=== PATIENT | female | born 1955 | race Asian ===

== ENCOUNTER → 2017-01-08 | Outpatient (CLI) | payer OTHER ==
[~2017-01-08] MED LIST: AMLO10TA2 PO; LOSA100T6 PO; METF500T4 PO
[2017-01-08 14:04] LABS: ASPARTATE AMINO TRANSFERASE 23 U/L (15-37); BLOOD UREA NITROGEN 18 mg/dL (7-18)
== END | disposition home or self-care (01) ==
LOC: STAR 12:32
PROVIDERS: ATTEND Surgery
DX: Z01.818 Encounter for other preprocedural examination (principal); E11.9 Type 2 diabetes mellitus without complications
CPT/HCPCS: 36415; 80053; 85025; 93005

== ENCOUNTER 2017-01-15 07:32 | Day surgery (SDC) | payer OTHER ==
[2017-01-08 13:43] VITALS: BP 129/88
[~2017-01-15] VITALS: Ht 160 cm; Wt 58.0 kg
[2017-01-15] MEDS ORDERED: SCOPOLAMINE PATCH, 1.5MG PATCH.TD72 TD STA (08:09)
[2017-01-15] MEDS ORDERED: LACTATED RINGERS 1,000 ML IV SCH (08:14)
[2017-01-15] MEDS ORDERED: LIDOCAINE 1%, 2ML ONE (08:17)
[2017-01-15] MEDS ORDERED: hydrALAzine 20 MG/ML, 1ML IV PRN (08:30)
[2017-01-15] MEDS ORDERED: ACETAMINOPHEN 325 MG TABLET PO PRN (08:30)
[2017-01-15] MEDS ORDERED: LIDOCAINE 1%, 2ML SQ PRN (08:30)
[2017-01-15] MEDS ORDERED: ONDANSETRON 2MG/ML, 2ML IVPush PRN (08:30)
[2017-01-15] MEDS ORDERED: LABETALOL 5MG/ML, 20ML IV PRN (08:30)
[2017-01-15] MEDS ORDERED: METOPROLOL 1 MG/ML, 5ML IV PRN (08:30)
[2017-01-15] MEDS ORDERED: EPHEDRINE 50 MG/ML, 1ML IVPush PRN (08:30)
[2017-01-15] MEDS ORDERED: MEPERIDINE/PF 25MG/0.5ML IVPush PRN (08:30)
[2017-01-15] MEDS ORDERED: OXYcodone 5 MG/5 ML ORAL.SOL UDC PO PRN (08:30)
[2017-01-15] MEDS ORDERED: ALBUTEROL SULFATE 2.5 MG/3 ML NPPB PRN (08:30)
[2017-01-15] MEDS ORDERED: HYDROmorphone 1 MG/ML, 1ML IV PRN (08:30)
[2017-01-15] MEDS ORDERED: FENTANYL PF 100 MCG/2ML IV PRN (08:30)
[2017-01-15] MEDS ORDERED: FENTANYL PF 250 MCG/5ML ONE (09:16)
[2017-01-15] MEDS ORDERED: MIDAZOLAM 1 MG/ML, 2ML ONE (09:16)
[2017-01-15] MEDS ORDERED: BUPIVACAINE/PF 0.5% ONE (09:19)
[2017-01-15] MEDS ORDERED: EPINEPHRINE 1 MG/ML, 1ML ONE (09:20)
[2017-01-15] MEDS ORDERED: CEFOTETAN 1 GM ONE (09:38)
[2017-01-15] MEDS ORDERED: PROPOFOL 10 MG/ML, 20ML ONE (09:38)
[2017-01-15] MEDS ORDERED: ROCURONIUM 10 MG/ML ONE (09:38)
[2017-01-15] MEDS ORDERED: NEOSTIGMINE 1 MG/ML, 10ML ONE (09:38)
[2017-01-15] MEDS ORDERED: GLYCOPYRROLATE 0.2MG/1ML ONE (09:38)
[2017-01-15] MEDS ORDERED: PROPOFOL 10 MG/ML, 50ML ONE (09:38)
[2017-01-15] MEDS ORDERED: ONDANSETRON 2MG/ML, 2ML ONE (09:38)
[2017-01-15] MEDS ORDERED: OXYcodone 5 MG/5 ML ORAL.SOL UDC ONE (11:03)
== END 2017-01-15 14:25 ==
LOC: OUT 07:32
PROVIDERS: ATTEND Surgery
DX: K35.80 Unspecified acute appendicitis (principal); D12.1 Benign neoplasm of appendix; E11.9 Type 2 diabetes mellitus without complications; I10 Essential (primary) hypertension
CPT/HCPCS: 44204; 82962; 88304; J0171; J2250; J2405; J2704; J2710; J3010; J3490; J7120; S0074